=== PATIENT | male | born 1965 | race Caucasian/White ===

== ENCOUNTER 2021-06-17 08:59 | Emergency (ER) | payer OTHER, SELFPAY ==
--- NOTE | 2021-06-17 09:10 | ED_ITS ---
HPI - Extremity Problem General Chief complaint: Extremity Injury, Upper Stated complaint: pinched finger in car door last night Time Seen by Provider: 06/17/21 09:10 Source: patient Mode of arrival: Ambulatory Limitations: no limitations History of Present Illness HPI Narrative: This is a 56-year-old male with a history of hypertension, dyslipidemia cardiac stent was on aspirin daily. Patient states he caught his finger in the door last night. He washed, wrapped it and this morning put hydrogen peroxide and started bleeding again. Patient states his tetanus is up-to-date the last 5 years. He denies any allergies. No other surgeries. No tobacco, occasional alcohol, no illicit. Related Data Previous Rx's Medication Instructions Recorded cephalexin 500 mg capsule 500 mg PO Q6H 5 Days #20 cap 06/17/21 Allergies Allergy/AdvReac Type Severity Reaction Status Date / Time No Known Drug Allergies Allergy Verified 06/17/21 09:15 Review of Systems Review of Systems ROS Unobtainable: All systems reviewed & are unremarkable except as noted in HPI and below Patient History Social History Smoking Status: Former smoker Exam Narrative Exam Narrative: GENERAL: Alert and oriented x three, male in mild distress. HEENT: Head normocephalic, atraumatic, EOMI, pupils reactive, face symmetric, moist mucous membranes NECK: Supple, full range of motion CARDIOVASCULAR: Regular rate and rhythm without murmurs, rubs or gallops. RESPIRATORY: Breath sounds equal bilaterally, no wheezes rales or rhonchi. EXTREMITIES: Normal range of motion, no clubbing. Patient has a stellate injury to the distal 2nd finger. Nail is intact. There is tissue missing on the finger on the thumb side. Patient has no obvious bony exposure. But subcutaneous tissue is exposed. Patient has full range of motion although decreased at the distal interphalangeal joint. Cap refill less than 2 seconds. NEUROLOGICAL: Cranial nerves II through XII grossly intact. Moving all extremities SKIN: Warm, dry, no petechiae, no rashes or lesions. Initial Vital Signs Initial Vital Signs: Vital Signs Temperature 98.1 F 06/17/21 09:15 Pulse Rate 93 H 06/17/21 09:15 Respiratory Rate 18 06/17/21 09:15 Blood Pressure 193/93 H 06/17/21 09:15 Pulse Oximetry 98 06/17/21 09:15 Course Orders Ordered: Discontinued Medications Bacitracin (Bacitracin Oint 0.9 Gm Pckt) 1 applic TOP NOW ONE Stop: 06/17/21 10:09 Last Admin: 06/17/21 10:13 Dose: 1 applic Documented by: SAM Cephalexin HCl (Cephalexin 250 Mg Capsule) 500 mg PO NOW ONE Stop: 06/17/21 09:19 Last Admin: 06/17/21 09:42 Dose: 500 mg Documented by: MARLO Vital Signs Vital signs: Vital Signs - 8 hr 06/17/21 09:15 Temperature 98.1 F Pulse Rate 93 H Respiratory Rate 18 Blood Pressure 193/93 H Pulse Oximetry 98 MDM - Extremity (Nontraumatic) Imaging Data Extremity x-ray #1: My Impression: no fx noted. Radiologist's Impression: Launch?[address] [address] XRay Report Signed Patient: Amos Baca MR#: [id number] : 1965 Acct:[id number] Age/Sex: 56 / M Date of Service: 06/17/21 Loc: ED Accession Number: [id number] ?? Procedure: XR finger LT min 2V Ordering Provider: Kacie Rice D.O. PROCEDURE:? XR FINGER LT MIN 2V ? INDICATIONS:? crushed finger in car ? TECHNIQUE:? AP hand, 2 views of the left 2nd finger(s) acquired.? ? COMPARISON:? None. ? FINDINGS:? ? Bones:? No fractures or dislocations.? No suspicious bony lesions.? ? Soft tissues:? No suspicious soft tissue calcifications.? Soft tissue swelling noted in the left finger.? ? IMPRESSION:? No fracture. No osseous lesion. If symptoms and/or clinical suspicion for pathology persists, further assessment with repeat radiographs (7-10 days) or advanced imaging (e.g. CT, MRI or bone scan) should be considered. ? ? Dictated by: Judy Squires MD, PhD on 06/17/2021 at 10:09 ? ? Approved by: Judy Squires MD, PhD on 06/17/2021 at 10:10? [facility] Narrative Medical decision making narrative: 56-year-old male who slammed his finger in the door. Patient has a stellate injury with open wound. That is not going to be closable there was a loss of tissue. Suspect possible tuft fracture which would be a open fracture. X-rays actually negative. Patient was covered with antibiotics as it was potentially a dirty wound. Plan for wound care either with Orthopedic surgery or via primary care. Patient tetanus is up-to-date. All questions answered return precautions discussed. Patient's nail does appear to be intact but discussed that he may eventually have the nail fall off. Discharge Plan Departure Patient Disposition: Home Clinical Impression: Avulsion of skin of finger Qualifiers: Encounter type: initial encounter Qualified Code(s): S61.209A - Unspecified open wound of unspecified finger without damage to nail, initial encounter Instructions: DI for Nail Avulsion Injury Activity Restrictions/Additional Instructions: Follow-up with orthopedic surgery for recheck. Call for an appointment. Take oral antibiotics until completely gone. Prescription sent to [facility]. Wound Care: Keep wound(s) clean and dry. Wash twice daily with soap and water only, pat dry and allow to fully dry before bandaging. Do not use over the counter products (alcohol or peroxide)on the wounds unless instructed by a physician. You may use triple antibiotic ointment 1-2 times daily to the affected area. If wound condition worsens (increased/expanding redness, developing fluid blisters, or worsening pain), either contact your doctor for an urgent re- assessment , or return to the Emergency Department. Return to the Emergency Department for any new or worsening symptoms. Return if fever greater than 100.4 Fahrenheit, increased swelling, increasing pain or worsening symptoms such as increased discharge or spreading redness. Prescriptions: New cephalexin 500 mg capsule 500 mg PO Q6H 5 Days Qty: 20 0RF Referrals: Cheryl Pérez MD [Physician] -
--- NOTE | 2021-06-17 09:11 | DI.RAD.S_ITS ---
PROCEDURE: XR FINGER LT MIN 2V INDICATIONS: crushed finger in car TECHNIQUE: AP hand, 2 views of the left 2nd finger(s) acquired. COMPARISON: None. FINDINGS: Bones: No fractures or dislocations. No suspicious bony lesions. Soft tissues: No suspicious soft tissue calcifications. Soft tissue swelling noted in the left finger. IMPRESSION: No fracture. No osseous lesion. If symptoms and/or clinical suspicion for pathology persists, further assessment with repeat radiographs (7-10 days) or advanced imaging (e.g. CT, MRI or bone scan) should be considered. Dictated by: Judy Squires MD, PhD on 06/17/2021 at 10:09 Approved by: Judy Squires MD, PhD on 06/17/2021 at 10:10
[2021-06-17 09:15] VITALS: BP 193/93; PULSE 93; RESP 18; TEMP 36.7; O2SAT 98; BMI 29.8
[2021-06-17] MEDS: cephALEXin 250 MG CAPSULE 500 MG PO (09:42)
[2021-06-17] MEDS: BACITRACIN OINT 0.9 GM PCKT 1 APPLIC TOP (10:13)
== END 2021-06-17 10:31 | disposition home or self-care (01) ==
PROVIDERS: Emergency Provider Emergency Medicine
DX: S61.201A Unspecified open wound of left index finger without damage to nail, initial encounter (principal); W23.0XXA Caught, crushed, jammed, or pinched between moving objects, initial encounter
CPT/HCPCS: 73140; 99283